=== PATIENT | female | born 1985 | race Caucasian/White ===

== ENCOUNTER 2017-01-11 22:03 | Emergency (ER) | payer OTHER ==
[2017-01-12] MEDS ORDERED: Ketorolac INJ* 30 MG/ML 1 ML VIAL IV PUSH ONE (00:04)
[2017-01-12] MEDS ORDERED: Metoclopramide IV* 5 MG/ML 2 ML VIAL IV SLOW PU ONE (00:04)
[2017-01-12] MEDS ORDERED: diPHENhydraMINE IV* 50 MG/ML 1 ml VIAL (BENADRYL) IV ONE (00:05)
[2017-01-12] MEDS ORDERED: NS 0.9% 1000 ML* 1,000 ML IV ONE (00:05)
[2017-01-12 02:31] VITALS: BP 115/54
--- NOTE | 2017-01-12 02:38 | ED ---
Deo Monroe SooYoung, scribed for Barrett Ray MD on 01/12/17 at 0002 . Headache - HPI Summary HPI Summary: A 31 y/o F presents to ED with acute on chronic migraine for past few months and worsening today at approx 1400. Migraine is described as stabbing and is located behind her eyes and the sides of her head. Associated sx: nausea, photophobia and sensitivity to noise, dizziness, numbness in hands and feet. Denies: vomiting. Pt takes Ibuprofen and Tylenol which has mildly alleviated her sx prior, but has not alleviated her sx today. Pt was seen by a provider at [facility], but not her PCP, earlier this week. She was referred to an eye doctor. She saw the eye doctor yesterday and they gave pt an order for an MRI. Per pt, the eye doctor told her that she had "bilat ocular fluid putting pressure on her retinal nerves." Pt attmpted to get the MRI done at [facility], but they refused to do it. Pt's migraine pain and vision has worsened, so the eye doctor recommended she go to the ED. She is scheduled to meet with a retinal surgeon next week. Dr. Claire is her PCP. - History Of Current Complaint Chief Complaint: EDHeadache Stated Complaint: HEAD PAIN,HAND NUMBNESS Time Seen by Provider: 01/11/17 23:53 Hx Obtained From: Patient Onset/Duration: Started hours ago - worsening at approx 1400 today, Started weeks ago, Still Present Initially Headache Was: Moderate Currently Pain Is: Severe Timing: Constant Character: Sharp Location of Headache: Diffuse - behind eyes, sides of head Aggravating Factor: Bright Lights Allevating Factors: Other (Noted In Comments) - OTC meds were helping, but no longer are Associated Signs And Symptoms: Nausea, Visual Changes, Other (Noted In Comments ) - see HPI - Allergies/Home Medications Allergies/Adverse Reactions: Allergies Allergy/AdvReac Type Severity Reaction Status Date / Time No Known Allergies Allergy Verified 01/11/17 22:09 PMH/Surg Hx/FS Hx/Imm Hx Previously Healthy: No Infectious Disease History: Yes Infectious Disease History: Denies: Traveled Outside the [place] in Last 30 Days Review of Systems Positive: Photophobia ENT: Other - sensitivity to noises Positive: Nausea. Negative: Vomiting Neurological: Other - pos: dizziness Positive: Headache - migraine, Numbness - in hands and feet All Other Systems Reviewed And Are Negative: Yes Physical Exam - Summary Physical Exam Summary: VITAL SIGNS: Reviewed. GENERAL: Patient is a well-developed and nourished FEMALE who is lying comfortable in the stretcher. Patient is not in any acute respiratory distress. HEAD AND FACE: No signs of trauma. No ecchymosis, hematomas or skull depressions. No sinus tenderness. EYES: PERRLA, EOMI x 2, no injected conjunctiva, no nystagmus. EARS: Hearing grossly intact. Ear canals and tympanic membranes are within normal limits. MOUTH: Oropharynx is within normal limits. NECK: Supple, trachea is midline, no adenopathy, no JVD, no carotid bruit, no c- spine tenderness, neck with full ROM. CHEST: Symmetric, no tenderness at palpation LUNGS: Clear to auscultation bilaterally. No wheezing or crackles. CVS: Regular rate and rhythm, S1 and S2 present, no murmurs or gallops appreciated. ABDOMEN: Soft, non-tender. No signs of distention. No rebound, no guarding, and no masses palpated. Bowel sounds are normal. EXTREMITIES: FROM in all major joints, no edema, no cyanosis, no clubbing. NEURO: Alert and oriented x 3. No acute neurological deficits. Speech is normal and follows commands. SKIN: Dry and warm Triage Information Reviewed: Yes Vital Signs On Initial Exam: Initial Vitals Temp Pulse Resp BP Pulse Ox 97.4 F 82 16 130/72 97 01/11/17 22:10 01/11/17 22:10 01/11/17 22:10 01/11/17 22:10 01/11/17 22:10 Vital Signs Reviewed: Yes Diagnostics - Vital Signs Vital Signs Temp Pulse Resp BP Pulse Ox 01/11/17 23:13 98 F 88 18 131/79 98 01/11/17 22:10 97.4 F 82 16 130/72 97 - Laboratory Lab Statement: Any lab studies that have been ordered have been reviewed, and results considered in the medical decision making process. Re-Evaluation - Re-Evaluation 1 Re-Evaluation Time: 02:36 Change: Improved Comment: Pt is feeling much better. Headache Course/Dx - Course Course Of Treatment: A 31 y/o F presents to ED with acute on chronic migraine for past few months and worsening today at approx 1400. Migraine is described as stabbing and is located behind her eyes and the sides of her head. Associated sx: nausea, photophobia and sensitivity to noise, dizziness, numbness in hands and feet. Denies: vomiting. Pt takes Ibuprofen and Tylenol which has mildly alleviated her sx prior, but has not alleviated her sx today. Pt was seen by a provider at [facility], but not her PCP, earlier this week. She was referred to an eye doctor. She saw the eye doctor yesterday and they gave pt an order for an MRI. Per pt, the eye doctor told her that she had "bilat ocular fluid putting pressure on her retinal nerves." Pt attmpted to get the MRI done at [facility], but they refused to do it. Pt's migraine pain and vision has worsened, so the eye doctor recommended she go to the ED. She is scheduled to meet with a retinal surgeon next week. Dr. Claire is her PCP. Pt given Benadryl, Toradol, Reglan and fluids in ED. - Diagnoses Provider Diagnoses: Migraine headache Discharge - Discharge Plan Condition: Stable Disposition: HOME Patient Education Materials: Migraine Headache (ED) Referrals: Carole Claire MD [Primary Care Provider] - Additional Instructions: Please return to the ED if you experience new or worsening symptoms. The documentation as recorded by the Deo rogers SooYoung accurately reflects the service I personally performed and the decisions made by me, Barrett Ray MD.
== END 2017-01-12 02:45 | disposition home or self-care (01) ==
LOC: ED 22:03
DX: G43.909 Migraine, unspecified, not intractable, without status migrainosus (principal)
CPT/HCPCS: 96374; 96375; 99282; J1200; J1885; J2765